=== PATIENT | female | born 1960 | race Caucasian/White ===

== ENCOUNTER 2020-10-08 04:13 | Emergency (ER) | payer MEDICAID ==
[~2020-10-08] VITALS: Ht 157.5 cm; Wt 61.0 kg
[~2020-10-08 04:13] MED LIST: ALBU6.7H11 INH; ALPR1TAB2 PO; LEVO500T2 PO; LORA10TA7 PO; OMEP20TA2 PO
[2020-10-08 06:20] LABS: CLARITY URINE TURBID (CLEAR); KETONES URINE 2+ (NEGATIVE); LEUKOCYTE ESTERASE URINE 3+ (NEGATIVE); NITRITE URINE POSITIVE (NEGATIVE); OCCULT BLOOD URINE 3+ (NEGATIVE); PROTEIN URINE 3+ (NEGATIVE); SPECIFIC GRAVITY URINE 1.015 (1.005-1.030)
[2020-10-08 06:23] LABS: COLOR URINE BLOODY (YELLOW)
[2020-10-08 09:05] VITALS: BP 118/78
== END 2020-10-08 09:09 | disposition home or self-care (01) ==
LOC: ER 04:17
DX: R31.0 Gross hematuria (principal); I10 Essential (primary) hypertension; Z79.899 Other long term (current) drug therapy; Z98.890 Other specified postprocedural states
CPT/HCPCS: 81003; 87077; 87086; 87186; 99283; A4217; Z7610

== ENCOUNTER 2021-02-10 23:39 | Emergency (ER) | payer MEDICAID ==
[~2021-02-10] VITALS: Ht 152.4 cm; Wt 80.0 kg
[2021-02-11 01:27] LABS: BASOPHILS % 0.9 % (0.0-2.0); EOSINOPHILS % 2.7 % (0.0-5.0); HEMATOCRIT. 44.4 % (36.0-48.0); HEMOGLOBIN. 15.1 g/dL (12.0-16.0); LYMPHOCYTES % 25.2 % (20.0-50.0); MEAN CORPUSCULAR HEMOGLOBIN 30.1 pg (28.0-32.0); MEAN CORPUSCULAR VOLUME 88.3 fL (81.0-99.0); MONOCYTES % 6.3 % (2.0-8.0); NEUTROPHILS % 64.9 % (40.0-76.0); PLATELET 282 x1000/uL (130-400); RED BLOOD CELL COUNT 5.02 mill/uL (4.2-5.4); RED CELL DISTRIBUTION WIDTH 14.9 % (11.6-14.6)
[2021-02-11 01:32] LABS: CHLORIDE 105 mEq/L (98-107)
[2021-02-11 01:38] LABS: ETHANOL BLOOD < 10 mg/dL
[2021-02-11 01:58] LABS: *BENZODIAZEPINES SCREEN URINE NEGATIVE (NEGATIVE); *COCAINE SCREEN URINE NEGATIVE (NEGATIVE)
[2021-02-11 01:59] LABS: *AMPHETAMINES SCREEN URINE NEGATIVE (NEGATIVE); *BARBITURATES SCREEN URINE NEGATIVE (NEGATIVE); CANNABINOID URINE SCREEN NEGATIVE (NEGATIVE); METHADONE URINE SCREEN NEGATIVE (NEGATIVE); OPIATES URINE SCREEN NEGATIVE (NEGATIVE); PHENCYCLIDINE URINE SCREEN NEGATIVE (NEGATIVE)
[2021-02-11 04:23] VITALS: BP 154/73
== END 2021-02-11 04:25 | disposition home or self-care (01) ==
LOC: ER 23:39
DX: R07.89 Other chest pain (principal); R05 Cough; E03.9 Hypothyroidism, unspecified; I10 Essential (primary) hypertension; Z90.49 Acquired absence of other specified parts of digestive tract; Z79.899 Other long term (current) drug therapy
CPT/HCPCS: 36415; 71045; 80053; 80305; 80320; 83880; 84439; 84443; 84484; 85025; 93005; 99284; 99285; G0480

== ENCOUNTER 2022-06-21 06:29 | Emergency (ER) | payer MEDICAID ==
[~2022-06-21] VITALS: Ht 162.6 cm; Wt 100.0 kg
[~2022-06-21 06:29] MED LIST changes: -ALBU6.7H11 INH; +ALBU6.7H15 INH; -OMEP20TA2 PO; +OMEP20TA23 PO
[2022-06-21 06:43] VITALS: BP 168/96
== END 2022-06-21 09:41 | disposition left against medical advice (07) ==
LOC: ER 06:29
DX: Z53.21 Procedure and treatment not carried out due to patient leaving prior to being seen by health care provider (principal)

== ENCOUNTER 2023-07-02 22:34 | Emergency (ER) | payer BC, MEDICAID ==
[~2023-07-02] VITALS: Ht 152.4 cm; Wt 75.0 kg
[2023-07-02 22:46] VITALS: BP 153/77; PULSE 63; RESP 12; TEMP 98.2; O2SAT 98
[2023-07-02 23:08] LABS: CLARITY URINE CLEAR (CLEAR); COLOR URINE DARK YELLOW (YELLOW); GLUCOSE URINE NEGATIVE (NEGATIVE); KETONES URINE NEGATIVE (NEGATIVE); LEUKOCYTE ESTERASE URINE 1+ (NEGATIVE); NITRITE URINE POSITIVE (NEGATIVE); OCCULT BLOOD URINE NEGATIVE (NEGATIVE); PH URINE 5.5 (4.5-8.0); PROTEIN URINE NEGATIVE (NEGATIVE); SPECIFIC GRAVITY URINE 1.016 (1.005-1.030)
[2023-07-02 23:22] LABS: BACTERIA URINE 1+
[2023-07-02 23:23] LABS: RBC URINE 0-2 /hpf (0-2); SQUAMOUS EPITHELIAL CELL URINE FEW /lpf (RARE/1+)
[2023-07-03] MEDS ORDERED: NITR100C PO (01:13)
[2023-07-03] MEDS ORDERED: METR70GE5 VG (01:13)
[2023-07-03] MEDS ORDERED: FLUC150T46 MT (01:13)
== END 2023-07-03 01:49 | disposition home or self-care (01) ==
LOC: ER 22:34
DX: N39.0 Urinary tract infection, site not specified (principal); N76.0 Acute vaginitis; Z90.49 Acquired absence of other specified parts of digestive tract
CPT/HCPCS: 81003; 87186; 99283

== ENCOUNTER 2025-05-26 18:43 | Emergency (ER) | payer BC, MEDICAID ==
[~2025-05-26] VITALS: Ht 152.4 cm; Wt 66.0 kg
[~2025-05-26 18:43] MED LIST changes: +FLUC150T46 MT; +METR70GE27 VG; +NITR100C PO
[2025-05-26 18:52] VITALS: BP 142/67; TEMP 37.7; O2SAT 97
[2025-05-26 18:55] VITALS: PULSE 91; RESP 18; O2SAT 97
[2025-05-26] MEDS ORDERED: NAPR-681 MT (19:33)
[2025-05-26] MEDS ORDERED: AMOX500T2 MT (19:33)
== END 2025-05-26 20:23 | disposition home or self-care (01) ==
LOC: ER 18:43
DX: J02.9 Acute pharyngitis, unspecified (principal); F41.9 Anxiety disorder, unspecified; F32.A Depression, unspecified; I10 Essential (primary) hypertension; Z79.899 Other long term (current) drug therapy
CPT/HCPCS: 99283